=== PATIENT | male | born 1965 | race Caucasian/White ===

== ENCOUNTER 2020-05-13 08:15 | Day surgery (SDC) | payer BC ==
[2020-05-13] VITALS (7 sets, daily range): BP systolic 118–161; BP diastolic 65–95; PULSE 59–77; TEMP 97.1–97.9
[~2020-05-13] VITALS: Ht 182.9 cm; Wt 81.3 kg
[~2020-05-13 08:15] MED LIST: MAGNESIUM100 MG PO; NO HOME MEDICATIONS; VITAMIN D1000 IU PO; VITAMINC1000TA PO
[2020-05-13] MEDS ORDERED: LIPITOR 40MG TA40 MG PO (08:46)
[2020-05-13] MEDS ORDERED: ASPIRIN 81M81 MG/TA2 PO (08:46)
[2020-05-13] MEDS ORDERED: ULTRAM 50MG TAB50 MG PO (11:18)
--- NOTE | 2020-05-13 11:50 | NUR ---
Patient arrives to [facility] via cart, accompanied by DOLL DRESSER Michelle. He is asleep. He easily arouses to light touch or voice. He has three surgical incisions that are clean, dry, glue intact. Abdomen is soft, tender, nondistended. PIV to TKO. Monitoring is applied -VSS and WNL on room air. Lights are dimmed for comfort. Call light is within reach.
--- NOTE | 2020-05-13 12:05 | NUR ---
Patient is resting comfortably in room. VSS on room air.
--- NOTE | 2020-05-13 12:20 | NUR ---
Patient is more awake, eyes open upon entrance to his room. He denies any pain or nausea at this time. HOB is raised and patient tolerates this well. Patient is offered and receives water and crackers to eat.
--- NOTE | 2020-05-13 12:50 | NUR ---
Patient is tolerating PO well. He requests and receives more water and crackers. He denies pain or nausea. Sites are clean/dry intact. He is sitting up in bed, reading.
--- NOTE | 2020-05-13 13:20 | NUR ---
Patient ambulates to the restroom with steady gait and standby assist. He voids and returns to his room.
--- NOTE | 2020-05-13 13:30 | NUR ---
Patient has met discharge criteria. Discharge instructions are discussed. He denies any questions and verbalizes understanding. PIV is removed with catheter intact and hemostasis achieved. He is changing to his clothing independently. His is called and staff has to leave a voicemail to notify her that he is ready to be picked up.
--- NOTE | 2020-05-13 14:05 | NUR ---
Patient is escorted to the exit via wheelchair by staff. He is discharged to home with ride in private vehicle at 1405 to the care of his .
== END 2020-05-13 14:05 | disposition home or self-care (01) ==
LOC: SDCO 08:15
DX: K40.90 Unilateral inguinal hernia, without obstruction or gangrene, not specified as recurrent (principal); D17.6 Benign lipomatous neoplasm of spermatic cord; I10 Essential (primary) hypertension; E78.00 Pure hypercholesterolemia, unspecified; Z79.82 Long term (current) use of aspirin; Z98.52 Vasectomy status
CPT/HCPCS: C1781; J0690; J1100; J1885; J2405; J2704; J2710; J3010; J7120